=== PATIENT | female | born 1960 | race Caucasian/White ===

== ENCOUNTER 2017-02-24 09:45 | Emergency (ER) | payer BC ==
[~2017-02-24] VITALS: Ht 160 cm; Wt 96.3 kg
[2017-02-24 10:14] VITALS: BP 146/63
[2017-02-24 10:39] LABS: HEMATOCRIT 40.4 % (36.0-46.0); HEMOGLOBIN 13.6 G/DL (11.9-15.5); MCH 30.8 PG (29.0-34.0); MCHC 33.7 G/DL (30.0-36.0); MCV 91.4 FL (83-99); PLATELET COUNT 277 K/uL (156-360); RBC DIS.WIDTH-CV 11.9 % (11.8-14.6); RBC DIS.WIDTH-SD 39.7 % (39-53); RED BLOOD COUNT 4.42 M/uL (3.80-5.20); WHITE BLOOD COUNT 6.2 K/uL (4.1-10.2)
[2017-02-24 10:50] LABS: CHLORIDE 110 mEq/L (99-109); POTASSIUM 3.8 mEq/L (3.7-5.4); SODIUM 141 mEq/L (136-147)
[2017-02-24 10:52] LABS: GLUCOSE 93 mg/dL (70-99)
[2017-02-24 10:55] LABS: CREATININE 0.8 mg/dL (0.6-1.3); GFR ESTIMATE (CALCULATED) > 59 mL/min/
[2017-02-24 10:56] LABS: UREA NITROGEN (BUN) 13 mg/dL (9-23)
[2017-02-24 10:58] LABS: TROP-I INTERPRETATION NEGATIVE; TROPONIN-I < 0.01 ng/mL (0.0-0.30)
== END 2017-02-24 12:41 | disposition home or self-care (01) ==
LOC: EME 09:45
PROVIDERS: Emergency Medicine
DX: R07.9 Chest pain, unspecified (principal); I45.10 Unspecified right bundle-branch block; Z53.20 Procedure and treatment not carried out because of patient's decision for unspecified reasons
CPT/HCPCS: 71045; 80048; 84484; 85027; 93005; 99281; 99284